=== PATIENT | female | born 1960 | race African-American/Black ===

== ENCOUNTER 2019-09-01 18:05 | Emergency (ER) | payer SELFPAY ==
[~2019-09-01] VITALS: Ht 162.6 cm; Wt 80.0 kg
[2019-09-01] MEDS ORDERED: DIAZEPAM 5 MG TABLET PO ONE (19:00)
[2019-09-01] MEDS ORDERED: MORPHINE SULFATE 10 MG/ML CPJ IM ONE (19:00)
[2019-09-01] MEDS ORDERED: KETOROLAC 30MG/ML VIAL IM ONE (19:00)
[2019-09-01 21:31] LABS: CLARITY URINE CLEAR (CLEAR); COLOR URINE YELLOW (YELLOW); KETONES URINE NEGATIVE (NEGATIVE); LEUKOCYTE ESTERASE URINE 2+ (NEGATIVE); NITRITE URINE NEGATIVE (NEGATIVE); OCCULT BLOOD URINE NEGATIVE (NEGATIVE); PH URINE 5.5 (4.5-8.0); PROTEIN URINE NEGATIVE (NEGATIVE); SPECIFIC GRAVITY URINE 1.027 (1.005-1.030)
[2019-09-01] MEDS ORDERED: FLUCONAZOLE 100MG TABLET PO ONE (22:00)
[2019-09-01 22:32] VITALS: BP 132/87
== END 2019-09-01 23:10 | disposition home or self-care (01) ==
LOC: ER 18:05
DX: M54.9 Dorsalgia, unspecified (principal); B37.3 Candidiasis of vulva and vagina; J44.9 Chronic obstructive pulmonary disease, unspecified; Z59.0 Homelessness
CPT/HCPCS: 81003; 96372; 99283; J1885; J2270

== ENCOUNTER 2019-09-11 14:11 | Emergency (ER) | payer SELFPAY ==
[~2019-09-11] VITALS: Ht 165.1 cm; Wt 60.0 kg
[2019-09-11] MEDS ORDERED: ALBUTEROL (0.083%) 2.5MG/3ML NEB HHN STA (16:05)
[2019-09-11] MEDS ORDERED: IPRATROPIUM BROMIDE (0.02%) 0.5MG/2.5ML NEB HHN STA (16:05)
[2019-09-11] MEDS ORDERED: METHYLPREDNISOLONE SOD SUCC 125 MG/2 ML VIAL IV STA (16:05)
[2019-09-11] MEDS ORDERED: ASPIRIN 81MG TABLET PO ONE (16:15)
[2019-09-11 16:44] LABS: BASOPHILS % 0.7 % (0.0-2.0); EOSINOPHILS % 1.3 % (0.0-5.0); HEMATOCRIT. 36.6 % (36.0-48.0); HEMOGLOBIN. 12.2 g/dL (12.0-16.0); LYMPHOCYTES % 35.7 % (20.0-50.0); MEAN CORPUSCULAR HEMOGLOBIN 31.1 pg (28.0-32.0); MEAN CORPUSCULAR VOLUME 93.4 fL (81.0-99.0); MONOCYTES % 9.3 % (2.0-8.0); PLATELET 309 x1000/uL (130-400); RED BLOOD CELL COUNT 3.92 mill/uL (4.2-5.4); RED CELL DISTRIBUTION WIDTH 13.3 % (11.6-14.6)
[2019-09-11 16:52] LABS: CHLORIDE 102 mEq/L (98-107)
[2019-09-11 19:00] VITALS: BP 144/75
== END 2019-09-11 19:39 | disposition home or self-care (01) ==
LOC: ER 14:11
DX: J44.1 Chronic obstructive pulmonary disease with (acute) exacerbation (principal)
CPT/HCPCS: 36415; 71045; 80053; 83880; 84484; 85025; 93005; 96374; 99285; J2930; J7611; Z7610

== ENCOUNTER 2020-05-02 11:25 | Emergency (ER) | payer MEDICAID ==
[~2020-05-02] VITALS: Ht 170.2 cm; Wt 63.0 kg
[2020-05-02 11:29] VITALS: BP 169/91
[2020-05-02] MEDS ORDERED: KETOROLAC 60MG/2ML VIAL IM ONE (12:00)
== END 2020-05-02 14:16 | disposition home or self-care (01) ==
LOC: ER 11:25
DX: M54.9 Dorsalgia, unspecified (principal); M79.601 Pain in right arm; J45.909 Unspecified asthma, uncomplicated; J44.9 Chronic obstructive pulmonary disease, unspecified; I10 Essential (primary) hypertension; Z88.0 Allergy status to penicillin; Z88.6 Allergy status to analgesic agent; Z86.19 Personal history of other infectious and parasitic diseases
CPT/HCPCS: 96372; 99283; J1885